=== PATIENT | male | born 1950 | race Caucasian/White ===

== ENCOUNTER 2018-09-28 15:33 | Emergency (ER) | payer OTHER ==
[~2018-09-28 15:33] MED LIST: ASPI-1181 PO; ATOR20TA65 PO; CEPH250 PO; VENL75TA89 PO
[2018-09-28] MEDS ORDERED: GUAIFENESIN SUGAR-FREE 100 MG/5 ML UDCUP ONE (17:31)
[2018-09-28] MEDS ORDERED: BENZONATATE 100 MG CAPSULE PO ONE (17:31)
== END 2018-09-28 18:29 | disposition home or self-care (01) ==
LOC: EDH 15:33
DX: J06.9 Acute upper respiratory infection, unspecified (principal); F41.9 Anxiety disorder, unspecified; I48.91 Unspecified atrial fibrillation; E78.5 Hyperlipidemia, unspecified; I25.2 Old myocardial infarction; I25.810 Atherosclerosis of coronary artery bypass graft(s) without angina pectoris; Z87.891 Personal history of nicotine dependence; Z88.7 Allergy status to serum and vaccine
CPT/HCPCS: 71046; 87804

== ENCOUNTER 2025-08-22 12:41 | Emergency (ER) | payer OTHER ==
[~2025-08-22] VITALS: Ht 185.4 cm; Wt 115.2 kg
[~2025-08-22 12:41] MED LIST changes: -ASPI-1181 PO; -ATOR20TA65 PO; +CEFD300C3 PO; -CEPH250 PO; -VENL75TA89 PO
[2025-08-22 13:10] LABS: IMMATURE GRANULOCYTE ABSOLUTE 0.01 K/uL (0-1); NUCLEATED RED BLOOD CELLS 0.0 % (0.0-0.19); PLATELET COUNT (AUTO) 184 K/uL (130-400); RED BLOOD CELL COUNT(AUTO) 4.39 MIL/uL (4.50-6.20); RED CELL DISTRIBUTION WIDTH 13.9 % (11.0-15.5); WHITE BLOOD COUNT (AUTO) 5.4 K/uL (4.8-10.8)
[2025-08-22 13:17] LABS: CREATININE 1.3 mg/dL (0.5-1.3); GLOMERULAR FILTR. RATE CALC 58.0 mL/min (>90); GLUCOSE,RANDOM 95.0 mg/dL (70-105); SODIUM SERUM 141.0 mmol/L (136-145); UREA NITROGEN, BLOOD 12.0 mg/dL (7-18)
[2025-08-22 13:22] VITALS: BP 122/59; PULSE 80; RESP 17; TEMP 98.4; O2SAT 97
[2025-08-22 13:22] LABS: ASPARTATE AMINOTRANSFERASE 35.0 U/L (10-37); TOTAL PROTEIN, SERUM 6.5 g/dL (6.0-8.3)
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
[2025-08-22] MEDS ORDERED: BACI30OI6 TP (15:01)
[2025-08-22] MEDS: BACITRACIN 1 EACH PACKET TP ONE (15:11)
== END 2025-08-22 15:30 | disposition home or self-care (01) ==
LOC: EDH 12:41
DX: S80.11XA Contusion of right lower leg, initial encounter (principal); I10 Essential (primary) hypertension; I25.10 Atherosclerotic heart disease of native coronary artery without angina pectoris; Z88.7 Allergy status to serum and vaccine; Z95.1 Presence of aortocoronary bypass graft; Z95.810 Presence of automatic (implantable) cardiac defibrillator; X58.XXXA Exposure to other specified factors, initial encounter; Y93.89 Activity, other specified; Y92.89 Other specified places as the place of occurrence of the external cause; Y99.8 Other external cause status
CPT/HCPCS: 36415; 73590; 80048; 80076; 83605; 83880; 85025; 99283

== ENCOUNTER → 2025-08-24 | Outpatient (CLI) | payer OTHER ==
[~2025-08-24] MED LIST changes: +BACI30OI6 TP
--- NOTE | 2025-08-25 02:49 | HMCIMG ---
EXAM: CT Head Without IV Contrast CLINICAL HISTORY: Personal history of other diseases of the circulatory system. TECHNIQUE: Axial computed tomography images of the head/brain obtained without intravenous contrast. COMPARISON: None provided. FINDINGS: BRAIN: No acute intracranial haemorrhage, mass lesion or CT evidence of acute territorial infarct. Diffuse cerebral volume loss. Scattered hypodensities in the bilateral fronto-parietal deep white matter compatible with chronic small-vessel ischaemic change. No midline shift or extra-axial collection. VENTRICLES: Normal size and configuration. No hydrocephalus. ORBITS: Unremarkable. SINUSES AND MASTOIDS: Paranasal sinuses and mastoid air cells are clear. BONES: No fracture. SOFT TISSUES: Unremarkable. IMPRESSION: * No acute intracranial abnormality. * Diffuse cerebral volume loss with chronic small-vessel ischaemic changes in the bilateral fronto-parietal white matter. /[place]
== END | disposition home or self-care (01) ==
LOC: RAH 13:06
PROVIDERS: ATTEND Psychiatry & Neurology Vascular Neurology
DX: I67.82 Cerebral ischemia (principal); Z86.79 Personal history of other diseases of the circulatory system; R90.82 White matter disease, unspecified
CPT/HCPCS: 70450